=== PATIENT | male | born 1980 | race Caucasian/White ===

== ENCOUNTER 2024-01-19 22:38 | Emergency (ER) | payer OTHER, SELFPAY ==
[2024-01-19 23:09] VITALS: BP 135/88; PULSE 68; TEMP 36.9; O2SAT 95; BMI 32.1
[2024-01-19] MEDS: METHYLPREDNISOLONE SOD SUCC PF 125 MG/2 ML VIAL IM (23:59)
[2024-01-19] MEDS: KETOROLAC TROMETHAMINE 60 MG/2 ML VIAL IM (23:59)
--- NOTE | 2024-01-20 00:04 | ED_ITS ---
HPI HPI - Back Pain/Injury General Chief Complaint: Back Pain/Injury Stated Complaint: back pain Time Seen by Provider: 01/19/24 23:12 Source: patient Mode of arrival: Wheelchair History of Present Illness HPI Narrative: This 43-year-old male presents for evaluation of low back pain. The pain has been present for 10 years but the patient has never had the opportunity to have it looked into because he did not have health insurance. The patient states the pain has been worse in the past week. He thinks this is related to the fact that his girlfriend's son who has cerebral palsy is full care and there daytime nurse recently quit. The patient has 2 help cigar packer and picker the girlfriend's son who weighs approximately 125 pounds to help get him into his wheelchair and in and out of bed. He denies any recent injury. He denies any loss of bowel or bladder function. He denies any nausea or vomiting. He has no chest pain or shortness of breath. He does not smoke or drink. The patient states that he was at work today and was limping around and his boss told him to go home and rest which is why he came to the emergency department. Related Data Allergies Allergy/AdvReac Type Severity Reaction Status Date / Time No Known Drug Allergies Allergy Verified 01/19/24 23:17 Opioid HPI Opioid Management Most Recent Opioid Data: Last Pain Scale 8 01/19/24 23:23 Review of Systems ROS Status of ROS 10 or more systems reviewed and unremark able except as noted in history and below Exam Narrative Exam Narrative: Vital signs and Nursing Notes reviewed: Patient is afebrile with a normal pulse, normal blood pressure, he is not hypoxic with pulse ox of 95% on room air General: Awake, alert, oriented, patient is sitting on the edge of the bed with his legs dangling over the side, he is able to move to the supine position but winces in pain at this time. No respiratory distress HEENT: Normocephalic atraumatic, mucous membranes are moist and pink, eyes are clear, normal conjunctiva, vision is grossly intact Neck: Supple, no meningeal signs, no anterior or posterior cervical lymphadenopathy Chest: Lungs are clear to auscultation with good air entry, there is no wheezing rhonchi or rales appreciated no accessory muscle use, patient is speaking in complete sentences-no chest wall tenderness to palpation CVS: Regular rate and rhythm S1-S2, no murmurs rubs or gallops, pulses are brisk and equal bilaterally ABD: Soft, nondistended, nontender, no rebound guarding or rigidity, bowel sounds are normal, no pulsatile masses appreciated Musc: There is midline bony vertebral tenderness along the distribution of the lumbar spine and muscle spasm in the low back bilaterally. There is no redness or point tenderness in the spine. Straight leg raising was negative on the right and positive at approximately 30 degrees on the left. Extremities: Moving all extremities, no lower extremity tenderness or swelling noted, negative Homans' sign, pulses are brisk and equal bilaterally Skin: Normal in appearance without rash,pallor, petechiae or purpura Neuro: Upper and lower extremity strength and sensation is intact. Deep tendon reflexes are brisk. Patellar reflex on the right is 2 out of 4 and on the left 1 out of 4. There is no saddle anesthesia. Constitutional Vital Signs, click to edit/add: Last Vital Signs Temp 98.5 F 01/19/24 23:09 Pulse 68 01/19/24 23:09 Resp 18 01/19/24 23:09 BP 135/88 01/19/24 23:09 Pulse Ox 95 01/19/24 23:09 O2 Del Method Room Air 01/19/24 23:09 Course Vital Signs Vital signs: Vital Signs Temperature 98.5 F 01/19/24 23:09 Pulse Rate 68 01/19/24 23:09 Respiratory Rate 18 01/19/24 23:09 Blood Pressure 135/88 01/19/24 23:09 Pulse Oximetry 95 01/19/24 23:09 Oxygen Delivery Method Room Air 01/19/24 23:09 Temperature 98.5 F 01/19/24 23:09 Pulse Rate 68 01/19/24 23:09 Respiratory Rate 18 01/19/24 23:09 Blood Pressure 135/88 01/19/24 23:09 Pulse Oximetry 95 01/19/24 23:09 Oxygen Delivery Method Room Air 01/19/24 23:09 MDM - Back Pain/Injury MDM Narrative Medical decision making narrative: This 43-year-old male with a history of chronic back pain presents for evaluation of worsening back pain over the past week that he thinks is related to having to lift his girlfriend's disabled son who weighs approximately 125 pounds after they are daytime nurse recently quit. He has been seen in the past by a chiropractor who did x-rays on his back and told him that he had nerve co mpression in his back. The patient states he has never had a thorough workup of his back pain because he never had health insurance. Today the patient was sent home from work due to the chronic back pain that he has. He has a job in which she has to do a lot of heavy lifting and bending and twisting. He denies any loss of bowel or bladder dysfunction. He has a mildly positive straight leg coombs sing test on the left with a slightly diminished patellar reflex on the left. The remainder of his neuroexam was normal. The patient is driving and was medicated emergency department with Toradol and a dose of Solu-Medrol. CT scan of the lumbar spine was ordered and is negative for acute findings. The results of the CT scan were discussed with the patient and he was given a copy. He will be referred to outpatient family medicine. I did review his [facility] report which is negative for any activity. He will be discharged home with 2 [place] to use as needed tonight and tomorrow morning until he can get prescriptions for [place], ibuprofen and Norflex filled. Medical Records Medical records narrative: The [address] [address] [address] Scan Report Signed Patient: POOJA TAY MR#: [id number] : 1980 Acct:[id number] Age/Sex: 43 / M ADM Date: 01/19/24 Loc: ER Attending Dr: Ordering Physician: Edwin Gunter Date of Service: 01/20/24 Procedure(s): CT lumbar spine wo con Accession Number(s): [id number] cc: Physician,Non-Staff M.D.~ The [address] [address] Patient Name: POOJA TAY MRN: [id number] date: 1980 Sex: M Assigned Patient Location: ER Current Patient Location: ER Accession/Order Number: [id number] Exam Date: 01/20/2024 00:20 Report Date: 01/20/2024 02:05 At the request of: EDWIN MARKER Procedure: CT lumbar spine wo con EXAMINATION:CT lumbar spine wo con HISTORY:severe low back pain COMPARISON:None TECHNIQUE: Multiple thin section transaxial slices were acquired through the lumbar spine without contrast. Coronal and sagittal reconstructed images were reviewed. FINDINGS: There is normal alignment of the lumbar spine without spondylolisthesis. No acute compression fractures are noted. The disc spaces are well-maintained. No bony canal or bony neural foraminal stenosis is present. The visualized bony pelvis is intact. Paraspinal soft tissues are unremarkable. CT/CT lumbar spine wo con IMPRESSION: Unremarkable CT examination of the lumbar spine. Electronically authenticated by: HECTOR ROJO Date: 01/20/2024 02:05 Discharge Plan Discharge Stand Alone Forms: Portal Instructions Chief Complaint: Back Pain/Injury Clinical Impression: Acute exacerbation of chronic low back pain Patient Disposition: Home, Self-Care Time of Disposition Decision: 02:31 Condition: Good Print Language: Faroese Instructions: Narcotic Safety (ED), Acute Low Back Pain (ED), Chronic Back Pain (DC), Lower Back Exercises (ED) Referrals: Physician,Non-Staff, MD [Primary Care Provider] - 1 week
--- NOTE | 2024-01-20 00:10 | CT_ITS ---
The [address] [address] Patient Name: POOJA TAY MRN: [id number] date: 1980 Sex: M Assigned Patient Location: ER Current Patient Location: ER Accession/Order Number: [id number] Exam Date: 01/20/2024 00:20 Report Date: 01/20/2024 02:05 At the request of: EDWIN MARKER Procedure: CT lumbar spine wo con EXAMINATION:CT lumbar spine wo con HISTORY:severe low back pain COMPARISON:None TECHNIQUE: Multiple thin section transaxial slices were acquired through the lumbar spine without contrast. Coronal and sagittal reconstructed images were reviewed. FINDINGS: There is normal alignment of the lumbar spine without spondylolisthesis. No acute compression fractures are noted. The disc spaces are well-maintained. No bony canal or bony neural foraminal stenosis is present. The visualized bony pelvis is intact. Paraspinal soft tissues are unremarkable. CT/CT lumbar spine wo con IMPRESSION: Unremarkable CT examination of the lumbar spine. Electronically authenticated by: HECTOR ROJO Date: 01/20/2024 02:05
[2024-01-20] MEDS: ONDANSETRON 4 MG RAPDIS TABLET SL (02:47)
[2024-01-20] MEDS: HYDROCODONE/ACET 5-325 MG TABLET 2 TAB PO (02:47)
== END 2024-01-20 02:54 | disposition home or self-care (01) ==
PROVIDERS: Emergency Provider Emergency Medicine
DX: M54.50 Low back pain, unspecified (principal); G89.29 Other chronic pain
CPT/HCPCS: 72131; 96372; 99284; J1885; J2919; Q0162